=== PATIENT | female | born 1955 | race Caucasian/White ===

== ENCOUNTER 2021-07-08 08:21 | Outpatient (CLI) | payer BC | END 2021-07-08 08:22 | disposition home or self-care (01) | LOC: CSHMAMMO 08:21 | PROVIDERS: ATTEND Obstetrics & Gynecology | DX: Z12.31 Encounter for screening mammogram for malignant neoplasm of breast (principal); Z13.820 Encounter for screening for osteoporosis | CPT/HCPCS: 77063; 77067; 77080 ==

== ENCOUNTER 2022-07-11 08:33 | Outpatient (CLI) | payer MEDICARE, OTHER | END 2022-07-11 08:34 | disposition home or self-care (01) | LOC: CSHMAMMO 08:33 | PROVIDERS: ATTEND Obstetrics & Gynecology | DX: Z12.31 Encounter for screening mammogram for malignant neoplasm of breast (principal) | CPT/HCPCS: 77063; 77067 ==